=== PATIENT | male | born 1970 | race Caucasian/White ===

== ENCOUNTER → 2020-02-26 | Outpatient (CLI) | payer BC ==
[~2020-02-26] MED LIST: ACYC800 PO; ALBU90OI INH; AMOX1XR PO; AMOX500 PO; CEFU50SU PO; CEPH500 PO; HYDACE5 PO; IBUP800 PO; KETO15TC TP; Monodox100 MG PO; PROCODE120 PO; Prednisone20 MG PO; SIMV40 PO; SPACE CHAMBER1 EACH MC; TRAM50 PO; VICODIN 5-3001 EACH PO
== END ==
LOC: LAB SHORT 11:44 → LAB 11:44
DX: R21 Rash and other nonspecific skin eruption (principal)
CPT/HCPCS: 87071; 87075; 87102; 87205

== ENCOUNTER → 2020-03-24 | Outpatient (CLI) | payer BC ==
[2020-03-24 14:46] LABS: Creatinine Urine 83.3 mg/dL (27.00-270.00)
== END ==
LOC: LAB 01:23 → LAB SHORT 01:23 → LAB FUT 03-20 14:50
PROVIDERS: Physician Assistant Medical
DX: R21 Rash and other nonspecific skin eruption (principal)
CPT/HCPCS: 81050; 82570

== ENCOUNTER 2025-03-04 08:32 | Emergency (ER) | payer BC ==
[~2025-03-04] VITALS: Ht 170.2 cm; Wt 74.8 kg
[2025-03-04] MEDS ORDERED: LOSA50 PO (09:14)
[2025-03-04] MEDS ORDERED: PRAV20 PO (09:14)
[2025-03-04] MEDS ORDERED: TRAZ50 (09:15)
[2025-03-04] MEDS ORDERED: Morphine Sulfate 4 MG/1 ML Injection IV ONE (09:20)
[2025-03-04] MEDS ORDERED: Ondansetron HCl 2 MG / ML 2ML Vial IV ONE (09:20)
[2025-03-04] MEDS ORDERED: Dexamethasone Sod Phos 10 MG/ML 1ML VIAL IV ONE (09:20)
[2025-03-04] MEDS ORDERED: HYDROmorphone HCl/Pf 1MG SYR IV ONE (10:10)
[2025-03-04] MEDS ORDERED: Ketamine HCL 10 MG in NS 100 ML IV ONE (11:15)
[2025-03-04] MEDS ORDERED: Ketorolac Tromethamine 30mg Vial IV ONE (11:45)
[2025-03-04 13:06] VITALS: BP 145/89
[2025-03-04] MEDS ORDERED: OXAYDO5 M1 PO (13:17)
[2025-03-04] MEDS ORDERED: METPRE4DP PO (13:17)
[2025-03-04] MEDS ORDERED: IBUP800 PO (13:17)
== END 2025-03-04 13:30 | disposition home or self-care (01) ==
LOC: ER 08:32
DX: M54.10 Radiculopathy, site unspecified (principal); F17.210 Nicotine dependence, cigarettes, uncomplicated
CPT/HCPCS: 96374; 96375; 99283-25; J1100; J1171; J1885; J2270; J2405